=== PATIENT | female | born 1955 | race Caucasian/White ===

== ENCOUNTER 2017-11-04 12:59 | Outpatient (CLI) | payer OTHER | END 2017-11-04 13:00 | disposition home or self-care (01) | LOC: BICRAD 12:59 | PROVIDERS: ATTEND Chiropractor | DX: M25.542 Pain in joints of left hand (principal) ==

== ENCOUNTER 2018-04-22 14:24 | Outpatient (CLI) | payer MEDICARE | END 2018-04-22 14:25 | disposition home or self-care (01) | LOC: BICMAMMO 14:24 | PROVIDERS: ATTEND Internal Medicine | DX: Z12.31 Encounter for screening mammogram for malignant neoplasm of breast (principal); Z13.820 Encounter for screening for osteoporosis; M85.88 Other specified disorders of bone density and structure, other site | CPT/HCPCS: 77063; 77067 ==

== ENCOUNTER 2018-04-22 14:27 | Outpatient (CLI) | payer MEDICARE | END 2018-04-22 14:28 | disposition home or self-care (01) | LOC: BICMAMMO 14:27 | PROVIDERS: ATTEND Internal Medicine | DX: Z13.820 Encounter for screening for osteoporosis (principal) | CPT/HCPCS: 77080 ==

== ENCOUNTER 2019-04-25 11:15 | Outpatient (CLI) | payer MEDICARE ==
--- NOTE | 2019-04-25 11:41 | MMO ---
Bilateral MAMMO Bilat Screen [facility]. CLINICAL HISTORY: Patient is 64 years old and is seen for screening. The patient has no family history of breast cancer. The patient has no personal history of cancer. VIEWS: The views performed were: bilateral craniocaudal with tomosynthesis and bilateral mediolateral oblique with tomosynthesis. FILMS COMPARED: The present examination has been compared to prior imaging studies performed at [facility] on 08/23/2013, 10/05/2014, 11/12/2015 and 04/22/2018. MAMMOGRAM FINDINGS: The breasts are heterogeneously dense, which could obscure a lesion on mammography. There are no suspicious masses, suspicious calcifications, or new areas of architectural distortion. IMPRESSION: THERE IS NO MAMMOGRAPHIC EVIDENCE OF MALIGNANCY. A ROUTINE FOLLOW-UP MAMMOGRAM IN 1 YEAR IS RECOMMENDED. THE RESULTS OF THIS EXAM WERE SENT TO THE PATIENT. ACR BI-RADS Category 1 - Negative MAMMOGRAPHY NOTE: 1. A negative mammogram report should not delay a biopsy if a dominant of clinically suspicious mass is present. 2. Approximately 10% to 15% of breast cancers are not detected by mammography. 3. Adenosis and dense breasts may obscure an underlying neoplasm.
== END 2019-04-25 11:16 | disposition home or self-care (01) ==
LOC: BICMAMMO 11:15
PROVIDERS: ATTEND Internal Medicine
DX: Z12.31 Encounter for screening mammogram for malignant neoplasm of breast (principal)
CPT/HCPCS: 77063; 77067

== ENCOUNTER 2020-08-17 13:20 | Outpatient (CLI) | payer MEDICARE ==
--- NOTE | 2020-08-17 13:59 | ULT ---
Exam: Bilateral renal ultrasound HISTORY: Chronic kidney disease COMPARISON: None FINDINGS: Right kidney: Normal cortical echotexture. No hydronephrosis. Right kidney measurements: 6.0 x 5.1 x 10.4 cm. Left kidney: Normal cortical echotexture. Nonspecific dilatation of the left renal pelvis along with mild inferior and upper pole calyceal dilatation. Left kidney measurements 9.3 x 5.9 x 5.7 cm. Urinary bladder: Normal mucosa. Bladder volume is 129 mL. IMPRESSION: 1. Mild left-sided hydronephrosis.
== END 2020-08-17 13:21 | disposition home or self-care (01) ==
LOC: BICULT 13:20
PROVIDERS: ATTEND Internal Medicine
DX: N18.30 Chronic kidney disease, stage 3 unspecified (principal); N13.30 Unspecified hydronephrosis
CPT/HCPCS: 76770

== ENCOUNTER 2020-10-05 13:51 | Outpatient (CLI) | payer MEDICARE ==
--- NOTE | 2020-10-05 14:55 | CT ---
Exam: Abdomen and pelvic CT scan without IV contrast. HISTORY: Chronic kidney disease COMPARISON: None FINDINGS: Evidence for small hiatal hernia with minimal thickening of the distal esophageal wall, nonspecific. Visualized lungs:No significant acute process. Liver:Unremarkable Gallbladder:Unremarkable Common bile duct:Nondilated. Pancreas:Unremarkable. Spleen:Unremarkable. Adrenal glands:Unremarkable. Kidneys:Mild dilatation of the calyces and upper renal collecting systems bilaterally without evidenc e for obstructing calculus or other obstructing process. No evidence for solid or cystic renal mass. Bowel:No evidence for large or small bowel obstruction. Aorta:No evidence for abdominal aortic aneurysm. Spine:No significant acute process. Appendix:No CT evidence for acute appendicitis. Peritoneum:There is some fat stranding in the central mesentery with some borderline size lymph nodes with a poorly defined pseudocapsule evidence for mesenteric panniculitis IMPRESSION: Very slight fullness of the right and left left renal upper collecting systems without calculus or ot her obstructing etiology. 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 Small hiatal hernia with minimal borderline thickening of the distal esophageal wall, nonspecific.
== END 2020-10-05 13:52 | disposition home or self-care (01) ==
LOC: BICCT 13:51
PROVIDERS: ATTEND Urology
DX: N18.31 Chronic kidney disease, stage 3a (principal); N13.30 Unspecified hydronephrosis; K65.4 Sclerosing mesenteritis; K44.9 Diaphragmatic hernia without obstruction or gangrene; K22.8 Other specified diseases of esophagus; N28.89 Other specified disorders of kidney and ureter
CPT/HCPCS: 74176

== ENCOUNTER 2022-01-02 10:48 | Outpatient (CLI) | payer MEDICARE | END 2022-01-02 10:49 | disposition home or self-care (01) | LOC: BICMAMMO 10:48 | PROVIDERS: ATTEND Internal Medicine | DX: Z12.31 Encounter for screening mammogram for malignant neoplasm of breast (principal) | CPT/HCPCS: 77063; 77067 ==

== ENCOUNTER 2023-08-20 10:32 | Outpatient (CLI) | payer MEDICARE | END 2023-08-20 10:33 | disposition home or self-care (01) | LOC: BICMAMMO 10:32 | PROVIDERS: ATTEND Internal Medicine | DX: Z12.31 Encounter for screening mammogram for malignant neoplasm of breast (principal); Z13.820 Encounter for screening for osteoporosis; Z78.0 Asymptomatic menopausal state; M85.88 Other specified disorders of bone density and structure, other site | CPT/HCPCS: 77063; 77067; 77080 ==